=== PATIENT | male | born 1995 | race African-American/Black ===

== ENCOUNTER 2017-05-11 13:15 | Emergency (ER) | payer MEDICAID, OTHER ==
[~2017-05-11] VITALS: Ht 175.3 cm; Wt 70.0 kg
[~2017-05-11 13:15] MED LIST: GUAN2ER PO
[2017-05-11 13:16] VITALS: BP 125/58; PULSE 52; RESP 12; TEMP 98.7; O2SAT 99
[2017-05-11] MEDS ORDERED: cefTRIAXone 250 MG VIAL IM ONE (14:00)
[2017-05-11] MEDS ORDERED: LIDOCAINE HCL 1% 50 ML VIAL XX ONE (14:00)
[2017-05-11] MEDS ORDERED: AZITHROMYCIN 250 MG TAB PO ONE (14:00)
--- NOTE | 2017-05-11 14:02 | PD ---
HPI . Penile discharge Chief Complaint: Complaint Time Seen by Provider: 13:51 Travel History International Travel<30 days: No Contact w/Intl Traveler<30days: No Traveled to known affect area: No History of Present Illness HPI This patient presents with a one-week history of a penile discharge. It is green. He states he had unprotected sex just prior to the onset of the penile discharge. PFSH Past Medical History ADHD: Yes Cardiovascular Problems: No Developmental Delay: No Diminished Hearing: No Genitourinary: No Musculoskeletal: No Neurologic: No Psychiatric: Yes (MOOD /ANGER PROBLEMS/OCD) Immunizations Current: Yes Seizures: No Thyroid Disease: No Ulcer: No Past Surgical History Other Surgery: No Social History Alcohol Use: No Tobacco Use: No Substance Use: No Allergies-Medications (Allergen,Severity, Reaction): Coded Allergies: No Known Allergies (Unverified Adverse Reaction, Unknown, 05/11/17) Reported Meds & Prescriptions Reported Meds & Active Scripts Active Intuniv (Guanfacine Hcl Er (Adhd)) 2 Mg Tab 2 Mg PO Q HS Review of Systems Except as stated in HPI: all other systems reviewed are Neg HENT: Positive: Dental Difficulties, Other (he states that he has impacted wisdom teeth that need to be removed) Physical Exam Narrative GENERAL: Awake and alert and in no acute distress. SKIN: Warm and dry. HEAD: Normocephalic/atraumatic. EYES: Pupils are equal. Extraocular movements are intact. NECK: Normal range of motion. Distally RESPIRATORY: Nonlabored respirations. MUSCULOSKELETAL: Atraumatic. NEUROLOGICAL: Nonfocal. PSYCHIATRIC: Appropriate mood and affect. Data Data Last Documented VS Vital Signs Date Time Temp Pulse Resp B/P (MAP) Pulse Ox O2 Delivery O2 Flow Rate FiO2 05/11/17 13:16 98.7 52 12 125/58 (80) 99 Orders Orders Gc And Chlamydia Pcr (05/11/17 13:51) Azithromycin (Zithromax) (05/11/17 14:00) Ceftriaxone Inj (Rocephin Inj) (05/11/17 14:00) Lidocaine 1% Inj (50 Ml) (Xylocaine 1% I (05/11/17 14:00) MDM Medical Decision Making Medical Screen Exam Complete: Yes Emergency Medical Condition: Yes Differential Diagnosis Differential diagnosis of penile discharge includes but is not limited to chlamydia and gonorrhea Narrative Course This patient presents complaining with a green penile discharge. This likely gonorrhea. He will be treated for both gonorrhea and chlamydia with Rocephin and Zithromax. Diagnosis Primary Impression: Sexually transmitted disease (STD) Patient Instructions: General Instructions, Sexually Transmitted Diseases (ED) Departure Forms: Tests/Procedures Disposition: 01 DISCHARGE HOME Condition: Stable Kelsey Melgar MD May 11, 2017 14:02
[2017-05-11] MEDS ORDERED: LIDOCAINE HCL 1% 20 ML VIAL OTHER ONE (14:30)
== END 2017-05-11 15:04 | disposition home or self-care (01) ==
LOC: NEPD 13:15
DX: A64 Unspecified sexually transmitted disease (principal); F90.9 Attention-deficit hyperactivity disorder, unspecified type; F42.9 Obsessive-compulsive disorder, unspecified
CPT/HCPCS: 87491; 87591; 96372; 99283; J0696